=== PATIENT | male | born 1950 | race Caucasian/White ===

== ENCOUNTER 2022-07-02 14:33 | Inpatient (IN) | payer MEDICARE ==
[2022-07-02] MEDS ORDERED: Diltiazem 125 MG/25 ML SDV ONE ×2 (15:38→15:40)
[2022-07-02] MEDS ORDERED: Aspirin Chewable 81 MG TAB ONE (15:38)
[2022-07-02 15:41] LABS: #Eosinphils 0.2 thou/uL (0.0-0.7); #Lymphocytes 1.3 thou/uL (1.20-3.40); #Monocytes 0.8 thou/uL (0.11-0.59); #Neutrophils 6.5 thou/uL (1.40-6.50); %Basophils 0.2 % (0.0-1.0); %Eosinophils 1.9 % (0.0-10.0); %Monocytes 8.7 % (0.0-10.0); %Neutrophils 74.2 % (42.0-75.0); Hemoglobin 15.2 g/dL (14.0-18.0); Mean Corpuscular HGB CONC 32.2 g/dL (32.0-36.0); Mean Corpuscular Hemoglobin 28.4 pg (27.0-31.0); Mean Corpuscular Volume 88.3 fl (78.0-98.0); Mean Platelet Volume 10.3 fL (7.4-10.4); Platelet Count 184 10x3/uL (130-400); RBC Distribution Width 13.7 % (11.5-14.5); Red Blood Cell (RBC) Count 5.35 mill/uL (4.70-6.10); White Blood Cell (WBC) Count 8.7 10x3/uL (4.8-10.8)
[2022-07-02 15:49] LABS: INR-International Normal Ratio 1.2; Prothrombin Time 15.8 sec (12.0-14.7)
[2022-07-02 15:51] LABS: PTT 27.1 sec (22.9-36.1)
[2022-07-02 16:22] LABS: CKMB 3.2 ng/mL (0-6.6)
[2022-07-02 16:27] LABS: ALT (SGPT) 24 U/L (8-55); AST (SGOT) 31 U/L (5-34); Albumin 3.8 g/dL (3.4-4.8); Alkaline Phosphatase 97 U/L (40-110); Anion Gap 16 mmol/L (10-20); BUN (Urea Nitrogen) 28 mg/dL (8.4-25.7); Bilirubin, Total 0.8 mg/dL (0.2-1.2); CK (CPK) 70 U/L (30-200); Calc. Creatinine Clearance 0 mL/min (70-130); Calcium 9.6 mg/dL (7.8-10.44); Carbon Dioxide 26 mmol/L (23-31); Chloride 96 mmol/L (98-107); Estimated GFR 51; Globulin 3.6 g/dL (2.4-3.5); Glucose 122 mg/dL (80-115); Potassium 3.4 mmol/L (3.5-5.1); Protein, Total 7.4 g/dL (5.8-8.1); Sodium 135 mmol/L (136-145)
[2022-07-02] MEDS ORDERED: Furosemide 40 MG/4 ML VIAL ONE (16:31)
[2022-07-02] MEDS ORDERED: Acetaminophen 325 MG TAB PO PRN (17:14)
[2022-07-02] MEDS ORDERED: Digoxin 0.5 MG/2 ML AMP SLOW IVP SCH (17:30)
[2022-07-02] MEDS ORDERED: Potassium Chloride 20 MEQ TAB PO SCH (17:45)
[2022-07-02] MEDS ORDERED: Electrolyte Replacement Protocol 1 EACH FS SCH (17:45)
[2022-07-02 18:52] LABS: Lactic Acid 2.3 mmol/L (0.5-2.2)
[2022-07-02 19:30] LABS: Troponin I 0.095 ng/mL (< 0.028)
[2022-07-02 21:34] VITALS: BMI 55.4
[2022-07-02 21:55] LABS: Troponin I 0.095 ng/mL (< 0.028)
[2022-07-02 23:46] LABS: Bilirubin Negative (Negative); Blood, Urine Negative (Negative); Clarity Clear (Clear); Glucose, Urine (Dipstick) Normal (Negative); Ketone, Urine Negative (Negative); Leukocyte Negative Leu/uL (Negative); Nitrite Negative (Negative); Protein, Urine (Dipstick) Negative (Neg-Trace); Specific Gravity, Urine 1.011 (1.002-1.036); Urobilinogen Normal mg/dL (Less than 2)
[2022-07-02] MEDS: Diltiazem 125 MG in Sodium Chloride 0.9% 100 ML IVPB SCH (23:52)
[2022-07-03 04:57] LABS: #Eosinphils 0.2 thou/uL (0.0-0.7); #Lymphocytes 1.5 thou/uL (1.20-3.40); #Monocytes 1.1 thou/uL (0.11-0.59); #Neutrophils 6.1 thou/uL (1.40-6.50); %Basophils 0.5 % (0.0-1.0); %Eosinophils 2.3 % (0.0-10.0); %Lymphocytes 16.8 % (21.0-51.0); %Monocytes 12.6 % (0.0-10.0); %Neutrophils 67.8 % (42.0-75.0); Hemoglobin 15.1 g/dL (14.0-18.0); Mean Corpuscular HGB CONC 33.1 g/dL (32.0-36.0); Mean Corpuscular Hemoglobin 28.8 pg (27.0-31.0); Mean Corpuscular Volume 87.1 fl (78.0-98.0); Mean Platelet Volume 10.4 fL (7.4-10.4); Platelet Count 160 10x3/uL (130-400); RBC Distribution Width 13.4 % (11.5-14.5); Red Blood Cell (RBC) Count 5.25 mill/uL (4.70-6.10); White Blood Cell (WBC) Count 8.9 10x3/uL (4.8-10.8)
[2022-07-03 05:26] LABS: Anion Gap 17 mmol/L (10-20); BUN (Urea Nitrogen) 28 mg/dL (8.4-25.7); Calc. Creatinine Clearance 149 mL/min (70-130); Calcium 9.5 mg/dL (7.8-10.44); Carbon Dioxide 28 mmol/L (23-31); Cardiac Risk 3.8 (Less than 4.5); Chloride 94 mmol/L (98-107); Cholesterol 137 mg/dl (< 200 Desired); Estimated GFR 63; Glucose 94 mg/dL (80-115); HDL Cholesterol 36 mg/dL (>60 Neg Risk); LDL Cholesterol, Calculated 85 mg/dL; Magnesium 2.1 mg/dL (1.6-2.6); Potassium 3.7 mmol/L (3.5-5.1); Sodium 135 mmol/L (136-145); Triglycerides 80 mg/dL (Less than 150)
[2022-07-03] MEDS: Furosemide 40 MG/4 ML VIAL SLOW IVP SCH ×2 (05:56→14:22)
[2022-07-03] MEDS: HYDROcodone/Acetaminophen 10/325 mg Tablet PO PRN ×2 (05:56→21:42)
[2022-07-03] MEDS: Levothyroxine Sodium 125 MCG TAB PO SCH (05:56)
[2022-07-03] MEDS: traMADol HCl 50 MG TAB PO SCH ×4 (05:58→23:41)
[2022-07-03] MEDS ORDERED: traMADol HCl 50 MG TAB PO SCH (06:00)
[2022-07-03] MEDS: Aspirin Chewable 81 MG TAB PO SCH (08:34)
[2022-07-03] MEDS: Potassium Chloride 20 MEQ TAB PO SCH (08:34)
[2022-07-03] MEDS: Diltiazem 125 MG in Sodium Chloride 0.9% 100 ML IVPB SCH (16:02)
[2022-07-03] MEDS: Digoxin 0.5 MG/2 ML AMP SLOW IVP SCH ×2 (16:02→23:43)
[2022-07-04] MEDS: Digoxin 0.5 MG/2 ML AMP SLOW IVP SCH ×2 (04:48→09:33)
[2022-07-04] MEDS: traMADol HCl 50 MG TAB PO SCH ×3 (06:17→18:12)
[2022-07-04] MEDS: Furosemide 40 MG/4 ML VIAL SLOW IVP SCH ×2 (06:18→16:30)
[2022-07-04] MEDS: Levothyroxine Sodium 125 MCG TAB PO SCH (06:18)
[2022-07-04 09:31] LABS: Chloride 93 mmol/L (98-107); Potassium 3.3 mmol/L (3.5-5.1); Sodium 137 mmol/L (136-145)
[2022-07-04 09:32] LABS: Calcium 9.6 mg/dL (7.8-10.44); Glucose 115 mg/dL (80-115)
[2022-07-04] MEDS: HYDROcodone/Acetaminophen 10/325 mg Tablet PO SCH ×3 (09:32→20:27)
[2022-07-04 09:33] LABS: Anion Gap 17 mmol/L (10-20); Carbon Dioxide 30 mmol/L (23-31)
[2022-07-04] MEDS: Potassium Chloride 20 MEQ TAB PO SCH (09:34)
[2022-07-04] MEDS: Aspirin Chewable 81 MG TAB PO SCH (09:34)
[2022-07-04 09:35] LABS: Calc. Creatinine Clearance 163 mL/min (70-130); Estimated GFR 69
[2022-07-04 09:36] LABS: BUN (Urea Nitrogen) 23 mg/dL (8.4-25.7)
[2022-07-04] MEDS ORDERED: Potassium Chloride 20 MEQ TAB PO SCH (10:00)
[2022-07-04] MEDS: Diltiazem 125 MG in Sodium Chloride 0.9% 100 ML IVPB SCH (14:00)
[2022-07-05] MEDS: traMADol HCl 50 MG TAB PO SCH ×4 (00:08→18:00)
[2022-07-05] MEDS: HYDROcodone/Acetaminophen 10/325 mg Tablet PO SCH ×4 (02:22→20:16)
[2022-07-05] MEDS: Furosemide 40 MG/4 ML VIAL SLOW IVP SCH ×2 (05:28→14:31)
[2022-07-05] MEDS: Levothyroxine Sodium 125 MCG TAB PO SCH (05:28)
[2022-07-05] MEDS: Potassium Chloride 20 MEQ TAB PO SCH (08:24)
[2022-07-05] MEDS: Aspirin Chewable 81 MG TAB PO SCH (08:24)
[2022-07-05] MEDS ORDERED: Milrinone Lactate/D5W 20 MG in Premix Bag 1 BAG IVPB SCH (16:15)
[2022-07-05] MEDS: Milrinone Lactate/D5W 20 MG in Premix Bag 1 BAG IVPB SCH ×2 (18:02→22:26)
[2022-07-05] MEDS: Apixaban 5 MG TAB PO SCH (20:15)
[2022-07-05] MEDS: Metoclopramide HCl 10 MG/2 ML VIAL IVP PRN (22:25)
[2022-07-06] MEDS: traMADol HCl 50 MG TAB PO SCH ×4 (01:07→18:22)
[2022-07-06] MEDS: HYDROcodone/Acetaminophen 10/325 mg Tablet PO SCH ×4 (03:00→20:16)
[2022-07-06] MEDS: Milrinone Lactate/D5W 20 MG in Premix Bag 1 BAG IVPB SCH ×4 (03:02→18:59)
[2022-07-06] MEDS: Levothyroxine Sodium 125 MCG TAB PO SCH (06:16)
[2022-07-06] MEDS: Furosemide 40 MG/4 ML VIAL SLOW IVP SCH (06:16)
[2022-07-06] MEDS ORDERED: Furosemide 40 MG/4 ML VIAL SLOW IVP SCH (08:16)
[2022-07-06] MEDS ORDERED: Furosemide 100 MG/10 ML VIAL FS SCH (08:30)
[2022-07-06] MEDS: Aspirin Chewable 81 MG TAB PO SCH (09:31)
[2022-07-06] MEDS: Potassium Chloride 20 MEQ TAB PO SCH (09:35)
[2022-07-06] MEDS: Apixaban 5 MG TAB PO SCH ×2 (09:35→20:17)
[2022-07-06] MEDS: Sacubitril 24MG/Valsartan 26 MG TAB PO SCH ×2 (10:18→20:16)
[2022-07-06] MEDS: Furosemide 100 MG/10 ML VIAL FS SCH (13:55)
[2022-07-06] MEDS: Carvedilol 6.25 MG TAB PO SCH (16:12)
[2022-07-06] MEDS: Metoclopramide HCl 10 MG/2 ML VIAL IVP PRN (18:28)
[2022-07-07] MEDS: traMADol HCl 50 MG TAB PO SCH ×4 (01:53→19:40)
[2022-07-07] MEDS: HYDROcodone/Acetaminophen 10/325 mg Tablet PO SCH ×4 (02:33→22:08)
[2022-07-07 04:44] LABS: Anion Gap 11 mmol/L (10-20); BUN (Urea Nitrogen) 18 mg/dL (8.4-25.7); Calc. Creatinine Clearance 179 mL/min (70-130); Carbon Dioxide 32 mmol/L (23-31); Cardiac Risk 3.4 (Less than 4.5); Chloride 93 mmol/L (98-107); Cholesterol 122 mg/dl (< 200 Desired); Estimated GFR 79; Glucose 113 mg/dL (80-115); HDL Cholesterol 36 mg/dL (>60 Neg Risk); LDL Cholesterol, Calculated 72 mg/dL; Magnesium 1.9 mg/dL (1.6-2.6); Potassium 3.1 mmol/L (3.5-5.1); Sodium 133 mmol/L (136-145); Triglycerides 71 mg/dL (Less than 150)
[2022-07-07] MEDS: Levothyroxine Sodium 125 MCG TAB PO SCH (05:55)
[2022-07-07] MEDS: Furosemide 100 MG/10 ML VIAL FS SCH (05:55)
[2022-07-07] MEDS: Milrinone Lactate/D5W 20 MG in Premix Bag 1 BAG IVPB SCH ×4 (05:56→21:42)
[2022-07-07] MEDS ORDERED: Potassium Chloride 20 MEQ TAB PO SCH (08:00)
[2022-07-07] MEDS ORDERED: Magnesium 2 GM/50 ML(in water) 2 GM in Premix Bag 1 BAG IVPB SCH (08:00)
[2022-07-07] MEDS: Aspirin Chewable 81 MG TAB PO SCH (09:06)
[2022-07-07] MEDS: Sacubitril 49 MG/Valsartan 51 MG TABLET PO SCH ×2 (09:06→21:36)
[2022-07-07] MEDS: Carvedilol 6.25 MG TAB PO SCH ×2 (09:07→17:12)
[2022-07-07] MEDS: Apixaban 5 MG TAB PO SCH ×2 (09:07→21:36)
[2022-07-07] MEDS: Metoclopramide HCl 10 MG/2 ML VIAL IVP PRN (09:11)
[2022-07-07] MEDS: Spironolactone 25 MG TAB PO SCH (09:11)
[2022-07-07] MEDS: Potassium Chloride 20 MEQ TAB PO SCH (09:27)
[2022-07-07] MEDS: Furosemide 100 MG/10 ML VIAL SLOW IVP SCH (13:58)
[2022-07-07] MEDS: Atorvastatin Calcium 20 MG TAB PO SCH (21:36)
[2022-07-08] MEDS: traMADol HCl 50 MG TAB PO SCH ×5 (00:05→23:23)
[2022-07-08] MEDS: Milrinone Lactate/D5W 20 MG in Premix Bag 1 BAG IVPB SCH (02:14)
[2022-07-08] MEDS: HYDROcodone/Acetaminophen 10/325 mg Tablet PO SCH ×4 (02:42→20:10)
[2022-07-08 04:58] LABS: #Eosinphils 0.5 thou/uL (0.0-0.7); #Lymphocytes 1.1 thou/uL (1.20-3.40); #Monocytes 1.4 thou/uL (0.11-0.59); %Basophils 0.2 % (0.0-1.0); %Eosinophils 4.8 % (0.0-10.0); %Lymphocytes 10.8 % (21.0-51.0); %Monocytes 14.4 % (0.0-10.0); %Neutrophils 69.8 % (42.0-75.0); Hemoglobin 13.8 g/dL (14.0-18.0); Mean Corpuscular HGB CONC 32.5 g/dL (32.0-36.0); Mean Corpuscular Hemoglobin 28.5 pg (27.0-31.0); Mean Corpuscular Volume 87.7 fl (78.0-98.0); Mean Platelet Volume 10.2 fL (7.4-10.4); Platelet Count 188 10x3/uL (130-400); RBC Distribution Width 13.5 % (11.5-14.5); Red Blood Cell (RBC) Count 4.84 mill/uL (4.70-6.10)
[2022-07-08] MEDS: Furosemide 100 MG/10 ML VIAL SLOW IVP SCH ×2 (06:05→14:22)
[2022-07-08] MEDS: Levothyroxine Sodium 125 MCG TAB PO SCH (06:11)
[2022-07-08] MEDS ORDERED: Metolazone 5 MG TAB PO SCH (08:45)
[2022-07-08] MEDS ORDERED: Metoclopramide HCl 10 MG/2 ML VIAL IVP SCH (08:45)
[2022-07-08] MEDS: Potassium Chloride 20 MEQ TAB PO SCH (09:32)
[2022-07-08] MEDS: Sacubitril 49 MG/Valsartan 51 MG TABLET PO SCH ×2 (09:32→20:08)
[2022-07-08] MEDS: Aspirin Chewable 81 MG TAB PO SCH (09:33)
[2022-07-08] MEDS: Famotidine 20 MG TAB PO SCH ×2 (09:33→20:08)
[2022-07-08] MEDS: Apixaban 5 MG TAB PO SCH ×2 (09:33→20:08)
[2022-07-08] MEDS: Carvedilol 6.25 MG TAB PO SCH ×2 (09:33→18:22)
[2022-07-08] MEDS: Spironolactone 25 MG TAB PO SCH (09:34)
[2022-07-08] MEDS: Atorvastatin Calcium 20 MG TAB PO SCH (20:08)
[2022-07-09 00:39] LABS: Potassium 3.3 mmol/L (3.5-5.1)
[2022-07-09] MEDS: HYDROcodone/Acetaminophen 10/325 mg Tablet PO SCH ×4 (03:46→21:15)
[2022-07-09 04:58] LABS: #Eosinphils 0.7 thou/uL (0.0-0.7); #Lymphocytes 1.4 thou/uL (1.20-3.40); #Monocytes 1.4 thou/uL (0.11-0.59); #Neutrophils 6.7 thou/uL (1.40-6.50); %Basophils 0.4 % (0.0-1.0); %Lymphocytes 13.3 % (21.0-51.0); %Monocytes 13.9 % (0.0-10.0); %Neutrophils 65.4 % (42.0-75.0); Hemoglobin 15.4 g/dL (14.0-18.0); Mean Corpuscular HGB CONC 31.3 g/dL (32.0-36.0); Mean Corpuscular Hemoglobin 27.6 pg (27.0-31.0); Mean Corpuscular Volume 88.1 fl (78.0-98.0); Mean Platelet Volume 10.2 fL (7.4-10.4); Platelet Count 205 10x3/uL (130-400); RBC Distribution Width 13.8 % (11.5-14.5); Red Blood Cell (RBC) Count 5.59 mill/uL (4.70-6.10); White Blood Cell (WBC) Count 10.2 10x3/uL (4.8-10.8)
[2022-07-09 05:23] LABS: Anion Gap 15 mmol/L (10-20); BUN (Urea Nitrogen) 25 mg/dL (8.4-25.7); Calc. Creatinine Clearance 164 mL/min (70-130); Calcium 9.1 mg/dL (7.8-10.44); Carbon Dioxide 29 mmol/L (23-31); Chloride 93 mmol/L (98-107); Estimated GFR 70; Glucose 90 mg/dL (80-115); Magnesium 2.1 mg/dL (1.6-2.6); Potassium 3.4 mmol/L (3.5-5.1); Sodium 134 mmol/L (136-145)
[2022-07-09] MEDS ORDERED: Potassium Chloride 20 MEQ TAB PO SCH (05:30)
[2022-07-09] MEDS: Furosemide 100 MG/10 ML VIAL SLOW IVP SCH ×2 (06:18→14:25)
[2022-07-09] MEDS: traMADol HCl 50 MG TAB PO SCH ×4 (06:19→23:52)
[2022-07-09] MEDS: Levothyroxine Sodium 125 MCG TAB PO SCH (06:20)
[2022-07-09] MEDS: Carvedilol 6.25 MG TAB PO SCH ×3 (08:40→21:16)
[2022-07-09] MEDS: Sacubitril 49 MG/Valsartan 51 MG TABLET PO SCH ×2 (08:40→21:15)
[2022-07-09] MEDS: Potassium Chloride 20 MEQ TAB PO SCH (08:40)
[2022-07-09] MEDS: Spironolactone 25 MG TAB PO SCH (08:40)
[2022-07-09] MEDS: Famotidine 20 MG TAB PO SCH ×2 (08:40→21:15)
[2022-07-09] MEDS: Apixaban 5 MG TAB PO SCH ×2 (08:40→21:18)
[2022-07-09] MEDS: Aspirin Chewable 81 MG TAB PO SCH (08:41)
[2022-07-09] MEDS: Atorvastatin Calcium 20 MG TAB PO SCH (21:15)
[2022-07-10] MEDS: HYDROcodone/Acetaminophen 10/325 mg Tablet PO SCH ×4 (02:46→20:22)
[2022-07-10 05:07] LABS: #Basophils 0.1 thou/uL (0.0-0.2); #Eosinphils 0.7 thou/uL (0.0-0.7); #Lymphocytes 1.7 thou/uL (1.20-3.40); #Monocytes 1.4 thou/uL (0.11-0.59); #Neutrophils 5.6 thou/uL (1.40-6.50); %Basophils 0.7 % (0.0-1.0); %Eosinophils 7.2 % (0.0-10.0); %Lymphocytes 17.8 % (21.0-51.0); %Monocytes 14.9 % (0.0-10.0); %Neutrophils 59.4 % (42.0-75.0); Hemoglobin 16.7 g/dL (14.0-18.0); Mean Corpuscular HGB CONC 33.5 g/dL (32.0-36.0); Mean Corpuscular Hemoglobin 29.4 pg (27.0-31.0); Mean Corpuscular Volume 87.8 fl (78.0-98.0); Platelet Count 208 10x3/uL (130-400); Red Blood Cell (RBC) Count 5.69 mill/uL (4.70-6.10); White Blood Cell (WBC) Count 9.5 10x3/uL (4.8-10.8)
[2022-07-10] MEDS: Levothyroxine Sodium 125 MCG TAB PO SCH (05:24)
[2022-07-10] MEDS: traMADol HCl 50 MG TAB PO SCH ×4 (05:24→23:26)
[2022-07-10] MEDS: Furosemide 100 MG/10 ML VIAL SLOW IVP SCH ×2 (05:24→12:02)
[2022-07-10 05:34] LABS: Anion Gap 15 mmol/L (10-20); BUN (Urea Nitrogen) 26 mg/dL (8.4-25.7); Calc. Creatinine Clearance 151 mL/min (70-130); Calcium 9.3 mg/dL (7.8-10.44); Carbon Dioxide 31 mmol/L (23-31); Chloride 92 mmol/L (98-107); Estimated GFR 64; Glucose 99 mg/dL (80-115); Potassium 3.7 mmol/L (3.5-5.1); Sodium 134 mmol/L (136-145)
[2022-07-10] MEDS: Carvedilol 6.25 MG TAB PO SCH ×3 (08:22→20:22)
[2022-07-10] MEDS: Aspirin Chewable 81 MG TAB PO SCH (08:22)
[2022-07-10] MEDS: Famotidine 20 MG TAB PO SCH ×2 (08:22→20:22)
[2022-07-10] MEDS: Sacubitril 49 MG/Valsartan 51 MG TABLET PO SCH ×2 (08:22→20:23)
[2022-07-10] MEDS: Spironolactone 25 MG TAB PO SCH (08:22)
[2022-07-10] MEDS: Potassium Chloride 20 MEQ TAB PO SCH (08:22)
[2022-07-10] MEDS: Apixaban 5 MG TAB PO SCH ×2 (08:22→20:21)
[2022-07-10] MEDS ORDERED: Metolazone 2.5 MG TAB PO SCH (11:30)
[2022-07-10] MEDS: Metoclopramide HCl 10 MG/2 ML VIAL IVP PRN (14:40)
[2022-07-10] MEDS: Atorvastatin Calcium 20 MG TAB PO SCH (20:22)
[2022-07-11] MEDS: HYDROcodone/Acetaminophen 10/325 mg Tablet PO SCH ×4 (02:36→20:57)
[2022-07-11 05:11] LABS: Anion Gap 17 mmol/L (10-20); BUN (Urea Nitrogen) 32 mg/dL (8.4-25.7); Calc. Creatinine Clearance 133 mL/min (70-130); Calcium 9.1 mg/dL (7.8-10.44); Carbon Dioxide 31 mmol/L (23-31); Chloride 89 mmol/L (98-107); Estimated GFR 55; Glucose 119 mg/dL (80-115); Potassium 3.7 mmol/L (3.5-5.1); Sodium 133 mmol/L (136-145)
[2022-07-11] MEDS: traMADol HCl 50 MG TAB PO SCH ×4 (05:24→23:56)
[2022-07-11] MEDS: Levothyroxine Sodium 125 MCG TAB PO SCH (05:24)
[2022-07-11] MEDS: Furosemide 100 MG/10 ML VIAL SLOW IVP SCH (05:25)
[2022-07-11] MEDS: Spironolactone 25 MG TAB PO SCH (09:32)
[2022-07-11] MEDS: Aspirin Chewable 81 MG TAB PO SCH (09:33)
[2022-07-11] MEDS: Famotidine 20 MG TAB PO SCH ×2 (09:33→20:58)
[2022-07-11] MEDS: Sacubitril 49 MG/Valsartan 51 MG TABLET PO SCH ×2 (09:33→20:58)
[2022-07-11] MEDS: Potassium Chloride 20 MEQ TAB PO SCH (09:33)
[2022-07-11] MEDS: Apixaban 5 MG TAB PO SCH ×2 (09:34→20:59)
[2022-07-11] MEDS: Carvedilol 6.25 MG TAB PO SCH ×3 (09:34→21:01)
[2022-07-11] MEDS: Atorvastatin Calcium 20 MG TAB PO SCH (20:59)
[2022-07-12] MEDS: HYDROcodone/Acetaminophen 10/325 mg Tablet PO SCH ×2 (02:39→09:06)
[2022-07-12 04:34] LABS: Anion Gap 17 mmol/L (10-20); BUN (Urea Nitrogen) 38 mg/dL (8.4-25.7); Calc. Creatinine Clearance 131 mL/min (70-130); Calcium 9.2 mg/dL (7.8-10.44); Carbon Dioxide 30 mmol/L (23-31); Chloride 91 mmol/L (98-107); Estimated GFR 55; Glucose 105 mg/dL (80-115); Potassium 3.5 mmol/L (3.5-5.1); Sodium 134 mmol/L (136-145)
[2022-07-12] MEDS: Levothyroxine Sodium 125 MCG TAB PO SCH (06:35)
[2022-07-12] MEDS: traMADol HCl 50 MG TAB PO SCH ×2 (06:35→13:21)
[2022-07-12] MEDS ORDERED: Furosemide 80 MG TAB PO SCH (07:30)
[2022-07-12] MEDS ORDERED: Potassium Chloride 20 MEQ TAB PO SCH (08:00)
[2022-07-12] MEDS: Aspirin Chewable 81 MG TAB PO SCH (08:59)
[2022-07-12] MEDS: Apixaban 5 MG TAB PO SCH (08:59)
[2022-07-12] MEDS: Potassium Chloride 20 MEQ TAB PO SCH (09:03)
[2022-07-12] MEDS: Famotidine 20 MG TAB PO SCH (09:03)
[2022-07-12] MEDS: Carvedilol 6.25 MG TAB PO SCH (09:03)
[2022-07-12] MEDS: Spironolactone 25 MG TAB PO SCH (09:04)
[2022-07-12] MEDS: Sacubitril 49 MG/Valsartan 51 MG TABLET PO SCH (09:04)
[2022-07-12 09:09] VITALS: BP 121/70; TEMP 97.2
== END 2022-07-12 16:22 | disposition home or self-care (01) | DRG 291 ==
LOC: ERS 14:33 → ERHOLD 16:32 → 2NO 18:59
PROVIDERS: ADMIT Family Medicine; ATTEND Family Medicine
DX: I11.0 Hypertensive heart disease with heart failure (principal); I50.43 Acute on chronic combined systolic (congestive) and diastolic (congestive) heart failure; I48.19 Other persistent atrial fibrillation; F11.20 Opioid dependence, uncomplicated; Z68.43 Body mass index [BMI] 50.0-59.9, adult; I47.20 Ventricular tachycardia, unspecified; I48.92 Unspecified atrial flutter; E66.01 Morbid (severe) obesity due to excess calories; E03.9 Hypothyroidism, unspecified; G89.29 Other chronic pain; M54.9 Dorsalgia, unspecified; E87.6 Hypokalemia; R94.31 Abnormal electrocardiogram [ECG] [EKG]; R79.89 Other specified abnormal findings of blood chemistry; I08.3 Combined rheumatic disorders of mitral, aortic and tricuspid valves; I42.8 Other cardiomyopathies; Z88.5 Allergy status to narcotic agent; Z91.041 Radiographic dye allergy status; Z90.49 Acquired absence of other specified parts of digestive tract; Z98.890 Other specified postprocedural states; Z79.899 Other long term (current) drug therapy; Z84.1 Family history of disorders of kidney and ureter; Z91.199 Patient's noncompliance with other medical treatment and regimen due to unspecified reason
CPT/HCPCS: 0439T; 36415; 36416; 71045; 80048; 80053; 80061; 81003; 82550; 82553; 83605; 83735; 83880; 84132; 84443; 84484; 85025; 85610; 85730; 93005; 93306; 94760; 96372; 96374; 96375; 96376; J1160; J1650; J1940; J2260; J2765; J3475; J3490